=== PATIENT | female | born 1995 | race Caucasian/White ===

== ENCOUNTER 2018-12-15 09:30 | Outpatient (RCR) | payer MEDICAID, SELFPAY | END 2018-12-15 23:59 | disposition home or self-care (01) | LOC: NS 09:30 | PROVIDERS: Family Provider Dentist; Visit Provider Nurse Practitioner Family | DX: Z71.3 Dietary counseling and surveillance (principal); E66.9 Obesity, unspecified; Z68.36 Body mass index [BMI] 36.0-36.9, adult | CPT/HCPCS: 97802; 97803 ==